=== PATIENT | male | born 1940 | race Caucasian/White ===

== ENCOUNTER → 2023-02-01 | Outpatient (CLI) | payer MEDICARE, OTHER, SELFPAY ==
[2023-02-01 11:19] LABS: Erythrocyte Sedimentation Rate 5 mm/hr (0-20)
[2023-02-01 11:21] LABS: Absolute Lymphocyte Count 2.11 X10^3/uL (0.83-4.51); Absolute Neutrophil Count 6.4 X10^3/uL (2.0-7.7); Basophil# 0.03 X10^3/uL; Basophil% 0.3 % (0-1); Eosinophil# 0.27 X10^3/uL; Eosinophils% 2.8 % (0-5); Hematocrit 49.9 % (40-54); Hemoglobin 16.5 g/dL (13.0-16.5); Lymphocyte # 2.11 X10^3/ul (0.83-4.51); Lymphocyte % 21.5 % (19-41); Mean Corp Hgb Conc 33.1 g/dL (32-36); Mean Corpuscular Hgb 32.4 pg (27.0-32.0); Mean Corpuscular Volume 97.8 fL (80-94); Mean Platelet Vol. 9.3 fl (6.2-12.0); Monocyte# 0.94 X10^3/uL; Monocyte% 9.6 % (0-10); NRBC Flagged by Analyzer 0 % (0-5); Neutrophil # 6.44 X10^3/uL (2.7-7.7); Neutrophil % 65.6 % (47-70); Platelet Count 189 K/mm3 (150-450); RBC Distribution Width CV 11.8 % (11.6-14.6); RBC Distribution Width SD 43.2 fl (35.1-43.9); White Blood Count 9.8 K/mm3 (4.4-11.0)
[2023-02-01 11:27] LABS: Prothrombin Time (Protime)PT. 12.6 SECONDS (11.7-14.9)
[2023-02-01 12:11] LABS: AST(SGOT) 47 U/L (15-37); Alanine Aminotransfer ALT/SGPT 41 U/L (16-61); Albumin, Serum 3.8 g/dL (3.2-5.0); Alkaline Phosphatase 84 U/L (45-117); Anion Gap 5 (5-15); BUN 21 mg/dL (7-18); BUN/Creat Ratio 20.8 RATIO (10-20); CRP < 2.90 mg/L (0.0-3.0); Calcium,Total 9.5 mg/dL (8.5-10.1); Chloride 108 mmol/L (98-107); Creatinine, Serum 1.01 mg/dL (0.70-1.30); EST Glomerular Filtration Rate 75 mL/min (>60); Est Glom Filt Rate - Afr Amer 91 mL/min (>60); Ferritin 122 ng/mL (26-388); Globulin 3.7 g/dL (2.2-4.2); Glucose 102 mg/dL (74-106); LDH 282 U/L (87-241); Potassium 4.3 mmol/L (3.5-5.1); Protein, Total 7.5 g/dL (6.4-8.2); Sodium Level 140 mmol/L (136-145)
[2023-02-01 12:37] LABS: HIV - WCH Non-Reactive (Nonreactive); Hepatitis B Surface Antibody Non-Reactive
[2023-02-02 16:09] LABS: Anti-Centromere B Ab <0.2 AI (0.0-0.9); Anti-Chromatin <0.2 AI (0.0-0.9); Anti-Jo <0.2 AI (0.0-0.9); Anti-Scleroderma-70 AB <0.2 AI (0.0-0.9); RNP Ab 0.2 AI (0.0-0.9); SJOGREN'S Anti-SS-A test < 0.2 AI (0.0-0.9); SJOGREN'S Anti-SS-B test < 0.2 AI (0.0-0.9); Smith Ab <0.2 AI (0.0-0.9)
[2023-02-02 17:02] LABS: Anti-Mitochondrial AB <20.0 Units (0.0-20.0); Anti-dsDNA Ab 41 IU/mL (0-9)
== END | disposition home or self-care (01) ==
PROVIDERS: Referring Provider Nurse Practitioner Adult Health; Visit Provider Nurse Practitioner Adult Health
DX: B19.20 Unspecified viral hepatitis C without hepatic coma (principal)
CPT/HCPCS: 36415; 80053; 80074; 82140; 82164; 82390; 82525; 82728; 83010; 83516; 83615; 85025; 85610; 85652; 86140; 86225; 86235; 86256; 86703; 86706; 87522; 87902

== ENCOUNTER → 2023-02-12 | Outpatient (CLI) | payer MEDICARE, OTHER, SELFPAY ==
--- NOTE | 2023-02-12 08:56 | US_ITS ---
STUDY: ABDOMINAL ULTRASOUND - ELASTOGRAPHY REASON FOR VISIT: Male, 82 years old. Hepatitis C. TECHNIQUE: Liver stiffness measurements were obtained on a [id number] 85 ultrasound machine using a CA 1-7 probe following the SRU guidelines. 3 measurements were obtained using a 2-D-SWE method. TheIQR/M was 24 % suggesting a quality data set. TECHNICAL QUALITY: Adequate. COMPARISON: Comparison is made with prior study done earlier in the day. FINDINGS: Liver: There is no demonstrated mass lesion. Median liver stiffness measured 6.2 kPa. US/Elastography Parenchyma/Organ IMPRESSION: Liver stiffness measures 6.2 kPa compatible with F2-F3 (Mild to moderate liver fibrosis) Metavir score. Electronically Signed: Khari Parham MD at 16:32 EDT ,
--- NOTE | 2023-02-12 08:56 | US_ITS ---
STUDY: ABDOMINAL ULTRASOUND - RIGHT UPPER QUADRANT STUDY: ABDOMINAL ULTRASOUND - RIGHT UPPER QUADRANT REASON FOR VISIT: Male, 82 years old hep c ab pos -- ruq TECHNIQUE: Ultrasound evaluation of the right upper quadrant was performed with real-time and static arora-scale imaging. TECHNICAL QUALITY: Adequate. COMPARISON: None. FINDINGS: REASON FOR VISIT: Male, 82 years old hep c ab pos -- ruq TECHNIQUE: Ultrasound evaluation of the right upper quadrant was performed with real-time and static arora-scale imaging. TECHNICAL QUALITY: Adequate. COMPARISON: None. FINDINGS: Liver: The liver measures 14.5 cm. There is normal echogenicity of the liver. The bile ducts are within normal limits. There is hepatic color flow. The direction of portal flow is hepatopetal. There is a 1.3 cm x 1.5 cm x 1.1 cm cyst in the left lobe of the liver. Gallbladder: The patient is status post cholecystectomy. Common Bile Duct (C.B.D.): The common bile duct measures 3.4 mm. Pancreas: Normal size of the head, body and tail of the pancreas. There is normal echogenicity of the pancreas. There is a 1.5 cm x 1.4 cm x 1.2 cm cyst in the tail portion of the pancreas. Right Kidney: Normal size of the right kidney. The right kidney measures 10.8 cm x 5.3 cm x 5.1 cm. Normal renal cortex. The right cortex measures 2.0 cm. To renal cysts are seen. The larger cyst measures 2.8 cm x 2.6 x 2.3 cm. There is no right hydronephrosis. US/Abdomen Limited IMPRESSION: Cyst is seen in the left lobe of the liver. Renal cysts. 1.5 cm by 1.4 cm x 1.2 cm cyst in the tail portion of the pancreas. Electronically Signed: Khari Parham MD at 16:30 EDT ,
== END | disposition home or self-care (01) ==
LOC: US 08:55
PROVIDERS: Visit Provider Nurse Practitioner Adult Health
DX: B19.20 Unspecified viral hepatitis C without hepatic coma (principal)
CPT/HCPCS: 76705; 76981

== ENCOUNTER → 2023-02-27 | Outpatient (CLI) | payer MEDICARE, OTHER, SELFPAY ==
--- NOTE | 2023-02-27 07:01 | MRI_ITS ---
STUDY: MR CHOLANGIOPANCREATOGRAPHY (MRCP); MRI ABDOMEN WITHOUT IV CONTRAST REASON FOR EXAM: Male, 82 years old. Pancreatic cyst. TECHNIQUE: Standard MRCP technique was utilized. Three-dimensional reconstruction images performed of the biliary system at an independent workstation and reviewed at time of dictation. Multiphase MRI performed without IV contrast. COMPARISON: Ultrasound 02/12/2023 FINDINGS: MRCP: Gall Bladder: Gall bladder is surgically absent. Cystic duct: Cystic duct was not well visualized. Intrahepatic ducts: Normal visualized intrahepatic ducts with no demonstrated fixed filling defect, dilation or stricture. Common hepatic duct: Normal with no demonstrated fixed filling defect, dilation or stricture. Common bile duct: Normal with no demonstrated fixed filling defect, dilation or stricture. Pancreatic duct: Normal with no demonstrated fixed filling defect, dilation or stricture. MRI abdomen without and with IV contrast: Visualized base of the chest is unremarkable. The visualized portions of the heart are within normal limits. T2 bright simple cysts of the liver. No required imaging follow-up needed given high likelihood of benign nature. Normal spleen. 9.4 x 13.8 mm T2 bright cyst of the pancreatic body on image 17 of series 4 without clear communication with the pancreatic ductal system. Normal bilateral adrenal glands. Simple bilateral renal cysts. No required imaging follow-up needed given high likelihood of benign nature. No hydronephrosis. Visualized hollow viscus structures are grossly unremarkable. Duodenal diverticulum. The appendix is not visualized. No retroperitoneal adenopathy. No bone marrow edema. MRI/MRCP Abdomen without Contrast IMPRESSION: 1. 1.4 cm pancreatic cyst. ACR White Paper guidelines (Nisha, et al. JACR 2017; 14(7):911-923) suggest a contrast-enhanced, pancreas-protocol abdominal CT or MR in 2 years. 2. Cholecystectomy. 3. Renal and hepatic simple cysts. No required imaging follow-up needed given high likelihood of benign nature. Electronically Signed: Johnny Cardoza (Brooks), at 9:42 EDT ,
== END | disposition home or self-care (01) ==
LOC: MRI 07:01
PROVIDERS: Referring Provider Nurse Practitioner Adult Health; Visit Provider Nurse Practitioner Adult Health
DX: K86.2 Cyst of pancreas (principal)
CPT/HCPCS: 74181